=== PATIENT | female | born 1980 | race Two or more races ===

== ENCOUNTER 2020-11-10 22:41 | Inpatient (IN) | payer OTHER ==
[~2020-11-10] VITALS: Ht 152.4 cm; Wt 68.9 kg
[2020-11-10] MEDS ORDERED: cloNIDine HCL 0.1 MG TAB PO ONE (23:00)
[2020-11-10 23:32] LABS: Basophils # (auto) 0.2 10 ^3/uL (0-0.2); Basophils % (auto) 2.2 % (0.0-2.0); Eosinophils # (auto) 0.1 10 ^3/uL (0-0.8); Eosinophils % (auto) 1.3 % (0.0-7.0); Hematocrit 37.4 % (36.0-46.0); Hemoglobin 12.4 g/dL (12.2-16.2); Lymphocytes # (auto) 2.6 10 ^3/uL (0.4-5.4); Mean Corpuscular Hemoglobin 30.3 pg (28.0-32.0); Mean Corpuscular Hgb Conc. 33.2 g/dL (32.0-36.0); Mean Corpuscular Volume 91.2 fL (80.0-100.0); Monocytes # (auto) 0.6 10 ^3/uL (0-1.3); Monocytes % (auto) 5.9 % (0.0-12.0); Neutrophils # (auto) 6.4 10 ^3/uL (1.6-8.6); Neutrophils % (auto) 64.6 % (37.0-80.0); Red Cell Distribution Width 13.6 % (11.8-14.3); White Blood Cell 9.9 10^3/uL (4.4-10.8)
[2020-11-10 23:51] LABS: BUN/Creatinine Ratio 9.5; Calcium 7.9 mg/dL (8.5-10.1); Potassium 3.7 mmol/L (3.5-5.1)
[2020-11-10 23:56] LABS: Bilirubin, Total 0.2 mg/dL (0.2-1.0); Total Protein 7.2 g/dL (6.4-8.2)
[2020-11-11] VITALS (7 sets, daily range): BP systolic 121–160; BP diastolic 72–91
[2020-11-11] MEDS ORDERED: DOCUSATE SOD 100 MG CAP PO PRN (01:45)
[2020-11-11] MEDS ORDERED: MORPHINE SULFATE 4 MG/ML SYR/VIAL IV PRN (01:45)
[2020-11-11] MEDS ORDERED: NITROGLYCERIN 0.4 MG SL TAB SL PRN (01:45)
[2020-11-11] MEDS ORDERED: MORPHINE SULFATE INJECTION 2 MG/ML SYRG IV PRN (01:45)
[2020-11-11] MEDS ORDERED: ONDANSETRON HCL 4 MG/2 ML VIAL IV PRN (01:45)
[2020-11-11] MEDS ORDERED: TEMAZEPAM 15 MG CAP PO PRN (01:45)
[2020-11-11] MEDS ORDERED: hydrALAZINE HCL 20 MG/ML VL IV PRN (01:45)
[2020-11-11] MEDS ORDERED: ACETAMINOPHEN 325 MG TAB PO PRN (01:45)
[2020-11-11 02:57] LABS: Urine Bacteria NONE SEEN /hpf (None Seen); Urine Blood 1+ /uL (Negative); Urine Specific Gravity 1.008 (1.001-1.035); Urine WBC 1 /hpf (0 - 5)
[2020-11-11] MEDS ORDERED: LOSA-69 PO (05:35)
[2020-11-11] MEDS: SODIUM CHLOR 0.9% PF (SALINE LOCK) 10ML VIAL/SYR IV SCH ×3 (06:04→21:24)
[2020-11-11] MEDS: MULTIPLE VITAMIN TAB PO SCH (09:48)
[2020-11-11] MEDS: ASCORBIC ACID 500 MG TAB PO SCH ×2 (09:48→21:23)
[2020-11-11] MEDS: amLODIPine BESYLATE 5 MG TAB PO SCH (09:48)
[2020-11-11] MEDS: ZINC SULFATE 220mg CAP or TAB PO SCH (09:48)
[2020-11-11] MEDS: FAMOTIDINE (10MG/ML) 2ML VL IV SCH ×2 (09:48→21:23)
[2020-11-11] MEDS: HEPARIN SODIUM (PORCINE) 5000 UNITS/ML 1ML VIAL SC SCH ×2 (09:55→21:20)
[2020-11-11 10:54] LABS: Potassium 3.6 mmol/L (3.5-5.1)
[2020-11-11 11:02] LABS: Calcium 7.3 mg/dL (8.5-10.1)
[2020-11-11] MEDS ORDERED: D5W/SOD CHLO 0.9% 1,000 ML IV SCH (11:30)
[2020-11-11 12:58] LABS: Protein, Urine 434.4 mg/dL (0.0-11.9)
[2020-11-11] MEDS: SODIUM BICARBONATE 50ML VIAL 50 ML in SOD CHL 0.45% 1,000 ML IV SCH ×2 (14:33→23:49)
[2020-11-11] MEDS: HYDROcodone-ACET 5/325MG TAB PO PRN ×2 (15:48→21:23)
[2020-11-12 05:00] VITALS: BP 150/95
[2020-11-12 06:00] VITALS: BP 145/80
[2020-11-12 06:02] LABS: Basophils # (auto) 0 10 ^3/uL (0-0.2); Basophils % (auto) 0.3 % (0.0-2.0); Eosinophils # (auto) 0.1 10 ^3/uL (0-0.8); Eosinophils % (auto) 1.2 % (0.0-7.0); Hematocrit 34.6 % (36.0-46.0); Hemoglobin 11.9 g/dL (12.2-16.2); Lymphocytes # (auto) 2.9 10 ^3/uL (0.4-5.4); Lymphocytes % (auto) 35.9 % (10.0-50.0); Mean Corpuscular Hemoglobin 31.1 pg (28.0-32.0); Mean Corpuscular Hgb Conc. 34.4 g/dL (32.0-36.0); Mean Corpuscular Volume 90.5 fL (80.0-100.0); Monocytes # (auto) 0.5 10 ^3/uL (0-1.3); Monocytes % (auto) 5.9 % (0.0-12.0); Neutrophils # (auto) 4.5 10 ^3/uL (1.6-8.6); Neutrophils % (auto) 56.7 % (37.0-80.0); Nucleated Red Blood Cells % 0.1 %; Red Blood Cells 3.82 10^6/uL (4.0-5.20); Red Cell Distribution Width 13.7 % (11.8-14.3); White Blood Cell 7.9 10^3/uL (4.4-10.8)
[2020-11-12 06:06] LABS: RPR Non Reactive (Non Reactive)
[2020-11-12] MEDS: LEVOTHYROXINE SODIUM 25 MCG TAB PO SCH (06:12)
[2020-11-12] MEDS: SODIUM CHLOR 0.9% PF (SALINE LOCK) 10ML VIAL/SYR IV SCH ×3 (06:12→21:29)
[2020-11-12 06:17] LABS: Potassium 3.8 mmol/L (3.5-5.1)
[2020-11-12 06:26] LABS: Albumin 2.4 g/dL (3.4-5.0); BUN/Creatinine Ratio 10.7; Bilirubin, Total 0.2 mg/dL (0.2-1.0); Magnesium 2.5 mg/dL (1.6-2.6); Phosphorus 4.6 mg/dL (2.5-4.90); Total Protein 6.2 g/dL (6.4-8.2)
[2020-11-12 09:00] VITALS: BP 141/85
[2020-11-12] MEDS: SODIUM BICARBONATE 50ML VIAL 50 ML in SOD CHL 0.45% 1,000 ML IV SCH ×2 (09:00→13:57)
[2020-11-12] MEDS: FAMOTIDINE (10MG/ML) 2ML VL IV SCH ×2 (09:16→21:28)
[2020-11-12] MEDS: MULTIPLE VITAMIN TAB PO SCH (09:16)
[2020-11-12] MEDS: ZINC SULFATE 220mg CAP or TAB PO SCH (09:16)
[2020-11-12] MEDS: amLODIPine BESYLATE 5 MG TAB PO SCH (09:17)
[2020-11-12] MEDS: ASCORBIC ACID 500 MG TAB PO SCH ×2 (09:17→21:28)
[2020-11-12] MEDS: HEPARIN SODIUM (PORCINE) 5000 UNITS/ML 1ML VIAL SC SCH ×2 (09:23→21:30)
[2020-11-12 11:44] LABS: INR 0.97 (0.9-1.15); Partial Thromboplastin Time 27.5 sec (23.6-33.0)
[2020-11-12 13:00] VITALS: BP 138/86
[2020-11-12] MEDS ORDERED: hydrALAZINE HCL 20 MG/ML VL IV PRN (13:00)
[2020-11-12 17:00] VITALS: BP 141/85
[2020-11-12 22:00] VITALS: BP 149/91
[2020-11-13] MEDS: SODIUM BICARBONATE 50ML VIAL 50 ML in SOD CHL 0.45% 1,000 ML IV SCH ×2 (01:01→11:50)
[2020-11-13 05:00] VITALS: BP 147/96
[2020-11-13 05:46] LABS: BUN/Creatinine Ratio 9.9; Calcium 7.9 mg/dL (8.5-10.1); Potassium 3.9 mmol/L (3.5-5.1)
[2020-11-13] MEDS: SODIUM CHLOR 0.9% PF (SALINE LOCK) 10ML VIAL/SYR IV SCH ×3 (06:41→21:23)
[2020-11-13] MEDS: LEVOTHYROXINE SODIUM 25 MCG TAB PO SCH (06:41)
[2020-11-13] MEDS: HEPARIN SODIUM (PORCINE) 5000 UNITS/ML 1ML VIAL SC SCH ×2 (08:47→21:24)
[2020-11-13] MEDS: FAMOTIDINE (10MG/ML) 2ML VL IV SCH ×2 (08:49→21:23)
[2020-11-13] MEDS: ZINC SULFATE 220mg CAP or TAB PO SCH (08:49)
[2020-11-13] MEDS: MULTIPLE VITAMIN TAB PO SCH (08:49)
[2020-11-13] MEDS: amLODIPine BESYLATE 5 MG TAB PO SCH (08:50)
[2020-11-13] MEDS: ASCORBIC ACID 500 MG TAB PO SCH ×2 (08:50→21:22)
[2020-11-13 09:13] VITALS: BP 152/88
[2020-11-13] MEDS ORDERED: ALUM & MAG HYDROX-SIMETH LIQ(MAALOX) 30 ML GT PRN (11:45)
[2020-11-13] MEDS ORDERED: ONDANSETRON HCL 4 MG/2 ML VIAL IV PRN (11:45)
[2020-11-13] MEDS: HYDROcodone-ACET 5/325MG TAB PO PRN (11:48)
[2020-11-13 12:48] LABS: Hepatitis B Surface Antigen Negative (Negative)
[2020-11-13 12:49] LABS: Hepatitis C Antibody Negative (Negative)
[2020-11-13 13:00] VITALS: BP 134/83
[2020-11-13 17:00] VITALS: BP 131/79
[2020-11-13 22:00] VITALS: BP 124/79
[2020-11-14] MEDS: SODIUM BICARBONATE 50ML VIAL 50 ML in SOD CHL 0.45% 1,000 ML IV SCH ×2 (00:24→14:05)
[2020-11-14 05:00] VITALS: BP 144/84
[2020-11-14] MEDS: SODIUM CHLOR 0.9% PF (SALINE LOCK) 10ML VIAL/SYR IV SCH ×3 (06:15→23:22)
[2020-11-14] MEDS: LEVOTHYROXINE SODIUM 25 MCG TAB PO SCH (06:16)
[2020-11-14 09:00] VITALS: BP 159/95
[2020-11-14] MEDS: ASCORBIC ACID 500 MG TAB PO SCH ×2 (10:00→23:22)
[2020-11-14] MEDS: ZINC SULFATE 220mg CAP or TAB PO SCH (10:00)
[2020-11-14] MEDS: MULTIPLE VITAMIN TAB PO SCH (10:00)
[2020-11-14] MEDS: HEPARIN SODIUM (PORCINE) 5000 UNITS/ML 1ML VIAL SC SCH ×2 (10:00→23:23)
[2020-11-14] MEDS: FAMOTIDINE (10MG/ML) 2ML VL IV SCH ×2 (11:19→23:21)
[2020-11-14] MEDS: amLODIPine BESYLATE 5 MG TAB PO SCH (11:19)
[2020-11-14] MEDS: HYDROcodone-ACET 5/325MG TAB PO PRN (11:35)
[2020-11-14] MEDS ORDERED: LIDOCAINE 2%HCL (LOCAL ANESTH.) INJ 20ML MDV ONE (12:03)
[2020-11-14] MEDS ORDERED: GELATIN 1 SPONGE SIZE 50 TOP ONE (12:14)
[2020-11-14 13:00] VITALS: BP 149/86
[2020-11-14 16:37] VITALS: BP 127/77
[2020-11-14 22:00] VITALS: BP 142/78
[2020-11-15] MEDS: SODIUM BICARBONATE 50ML VIAL 50 ML in SOD CHL 0.45% 1,000 ML IV SCH ×2 (04:08→10:30)
[2020-11-15 05:00] VITALS: BP 146/89
[2020-11-15 05:55] LABS: Basophils # (auto) 0 10 ^3/uL (0-0.2); Basophils % (auto) 0.4 % (0.0-2.0); Eosinophils # (auto) 0.1 10 ^3/uL (0-0.8); Eosinophils % (auto) 0.8 % (0.0-7.0); Hemoglobin 11.4 g/dL (12.2-16.2); Lymphocytes # (auto) 2.1 10 ^3/uL (0.4-5.4); Lymphocytes % (auto) 31.6 % (10.0-50.0); Mean Corpuscular Hemoglobin 30.8 pg (28.0-32.0); Mean Corpuscular Hgb Conc. 34.4 g/dL (32.0-36.0); Mean Corpuscular Volume 89.6 fL (80.0-100.0); Monocytes # (auto) 0.4 10 ^3/uL (0-1.3); Monocytes % (auto) 5.9 % (0.0-12.0); Neutrophils % (auto) 61.3 % (37.0-80.0); Nucleated Red Blood Cells % 0.1 %; Red Blood Cells 3.68 10^6/uL (4.0-5.20); Red Cell Distribution Width 12.9 % (11.8-14.3); White Blood Cell 6.5 10^3/uL (4.4-10.8)
[2020-11-15] MEDS: SODIUM CHLOR 0.9% PF (SALINE LOCK) 10ML VIAL/SYR IV SCH ×2 (06:01→14:00)
[2020-11-15 06:07] LABS: BUN/Creatinine Ratio 8.1; Calcium 8.1 mg/dL (8.5-10.1); Potassium 3.9 mmol/L (3.5-5.1)
[2020-11-15] MEDS: LEVOTHYROXINE SODIUM 25 MCG TAB PO SCH (06:42)
[2020-11-15 08:13] VITALS: BP 149/89
[2020-11-15] MEDS: ZINC SULFATE 220mg CAP or TAB PO SCH (09:35)
[2020-11-15] MEDS: ASCORBIC ACID 500 MG TAB PO SCH (09:35)
[2020-11-15] MEDS: FAMOTIDINE (10MG/ML) 2ML VL IV SCH (09:35)
[2020-11-15] MEDS: MULTIPLE VITAMIN TAB PO SCH (09:35)
[2020-11-15] MEDS: amLODIPine BESYLATE 5 MG TAB PO SCH (09:36)
[2020-11-15] MEDS: HEPARIN SODIUM (PORCINE) 5000 UNITS/ML 1ML VIAL SC SCH (09:52)
[2020-11-15] MEDS ORDERED: CHOLECALCIFEROL (VITD3) 2,000 UNIT CAP/TAB PO SCH (10:00)
[2020-11-15 13:00] VITALS: BP 121/73
[2020-11-15] MEDS: HYDROcodone-ACET 5/325MG TAB PO PRN (13:46)
[2020-11-15 16:06] VITALS: BP 121/89
== END 2020-11-15 16:52 | disposition home or self-care (01) | DRG 199 ==
LOC: ER 22:41 → TELE 11-11 01:42 → TELE-CENTR 11-11 04:25
PROVIDERS: ADMIT Nurse Practitioner Family; ATTEND Internal Medicine
PROC: 0TB13ZX Excision of Left Kidney, Percutaneous Approach, Diagnostic (ICD-10-PCS; principal; 2020-11-14)
DX: I16.0 Hypertensive urgency (principal); N17.0 Acute kidney failure with tubular necrosis; E87.2 Acidosis; R55 Syncope and collapse; E03.9 Hypothyroidism, unspecified; N18.32 Chronic kidney disease, stage 3b; H35.039 Hypertensive retinopathy, unspecified eye; E55.9 Vitamin D deficiency, unspecified; I12.9 Hypertensive chronic kidney disease with stage 1 through stage 4 chronic kidney disease, or unspecified chronic kidney disease; Z79.899 Other long term (current) drug therapy; Z91.15 Patient's noncompliance with renal dialysis; Z20.822 Contact with and (suspected) exposure to COVID-19; R80.9 Proteinuria, unspecified
CPT/HCPCS: 10022; 36415; 36600; 74150; 76775; 77012; 80048; 80053; 81001; 82306; 82550; 82570; 82805; 83036; 83520; 83735; 83880; 83970; 84100; 84156; 84300; 84439; 84443; 84484; 85025; 85610; 85652; 85730; 86038; 86141; 86160; 86256; 86592; 86803; 87340; 87426; 93306; 99291; G0378; J2405; J3490

== ENCOUNTER 2021-10-13 16:42 | Inpatient (IN) | payer OTHER ==
[~2021-10-13] VITALS: Ht 152.4 cm; Wt 57.7 kg
[~2021-10-13 16:42] MED LIST: LOSA-69 PO
[2021-10-13 17:55] LABS: Basophils # (auto) 0 10 ^3/uL (0-0.2); Basophils % (auto) 0.4 % (0.0-2.0); Eosinophils # (auto) 0.1 10 ^3/uL (0-0.8); Eosinophils % (auto) 0.8 % (0.0-7.0); Hematocrit 26.7 % (36.0-46.0); Hemoglobin 8.7 g/dL (12.2-16.2); Lymphocytes % (auto) 9.6 % (10.0-50.0); Mean Corpuscular Hemoglobin 28.5 pg (28.0-32.0); Mean Corpuscular Hgb Conc. 32.8 g/dL (32.0-36.0); Monocytes # (auto) 0.8 10 ^3/uL (0-1.3); Monocytes % (auto) 7.8 % (0.0-12.0); Neutrophils # (auto) 8.2 10 ^3/uL (1.6-8.6); Neutrophils % (auto) 81.4 % (37.0-80.0); Nucleated Red Blood Cells % 0.1 %; Red Blood Cells 3.07 10^6/uL (4.0-5.20); White Blood Cell 10.1 10^3/uL (4.4-10.8)
[2021-10-13 18:17] LABS: Albumin 2.9 g/dL (3.4-5.0); BUN/Creatinine Ratio 8.3; Calcium 8.1 mg/dL (8.5-10.1); Potassium 4.2 mmol/L (3.5-5.1)
[2021-10-13 18:19] LABS: Bilirubin, Total 0.3 mg/dL (0.2-1.0); Total Protein 7.3 g/dL (6.4-8.2)
[2021-10-14] MEDS ORDERED: MORPHINE SULFATE INJ 2 MG/ml SYRG IV PRN (03:15)
[2021-10-14] MEDS ORDERED: cloNIDine HCL 0.1 MG TAB PO PRN (03:15)
[2021-10-14] MEDS ORDERED: NITROGLYCERIN 0.4 MG SL TAB SL PRN (03:15)
[2021-10-14] MEDS: ONDANSETRON HCL 4 MG/2 ML VIAL IV PRN (03:19)
[2021-10-14] MEDS ORDERED: ENOXAPARIN SOD 60 MG/0.6 ML SYRINGE SC ONE (03:30)
[2021-10-14 04:03] LABS: Cholesterol 170 mg/dL (< 200); HDL Cholesterol 48 mg/dL (40-59); LDL Cholesterol 99 mg/dL (< 100); Triglycerides 164 mg/dL (< 150)
[2021-10-14] MEDS ORDERED: D5W/SOD CHLO 0.9% 1,000 ML IV SCH (06:30)
[2021-10-14] MEDS ORDERED: SODIUM CHLORIDE 0.9% 1,000 ML IV SCH (08:30)
[2021-10-14 09:00] VITALS: BP 145/87
[2021-10-14 09:19] VITALS: BP 145/87
[2021-10-14 09:54] LABS: BUN/Creatinine Ratio 7.9; Calcium 8.1 mg/dL (8.5-10.1); Potassium 3.6 mmol/L (3.5-5.1)
[2021-10-14 10:00] LABS: % Iron Saturation 12.4 % (15-50)
[2021-10-14] MEDS ORDERED: ASPirin 81 mg TAB PO SCH (10:00)
[2021-10-14] MEDS: amLODIPine BESYLATE 5 MG TAB PO SCH (10:13)
[2021-10-14] MEDS: PANTOPRAZOLE 40 MG TAB PO SCH (10:14)
[2021-10-14] MEDS ORDERED: SODIUM BICARBONATE 50ML VIAL 150 ML in D5W 5% 1,000 ML IV SCH ×2 (12:15→18:00)
[2021-10-14] MEDS ORDERED: AML5T PO (12:48)
[2021-10-14] MEDS ORDERED: LEV50T PO (12:48)
[2021-10-14 13:00] VITALS: BP 133/89
[2021-10-14] MEDS: SODIUM FERR GLUC 62.5MG/5ML 125 MG in SODIUM CHL 0.9% 100 ML IV SCH (16:51)
[2021-10-14 17:12] VITALS: BP 118/77
[2021-10-14] MEDS: SEVELAMER 800 MG TAB PO SCH (18:21)
[2021-10-14 18:34] LABS: INR 0.97 (0.9-1.15); Partial Thromboplastin Time 49.7 sec (24.6-33.4)
[2021-10-14 22:00] VITALS: BP 112/76
[2021-10-14] MEDS: ATORVASTATIN 20 MG TAB PO SCH (22:40)
[2021-10-15] VITALS (9 sets, daily range): BP systolic 122–145; BP diastolic 75–91
[2021-10-15] MEDS: ACETAMINOPHEN 325 MG TAB PO PRN ×2 (01:55→21:39)
[2021-10-15 05:50] LABS: Albumin 2.3 g/dL (3.4-5.0); Calcium 7.1 mg/dL (8.5-10.1); Magnesium 2.3 mg/dL (1.6-2.6); Potassium 3.5 mmol/L (3.5-5.1)
[2021-10-15 05:51] LABS: Basophils # (auto) 0 10 ^3/uL (0-0.2); Eosinophils # (auto) 0.2 10 ^3/uL (0-0.8); Hemoglobin 7.6 g/dL (12.2-16.2); Lymphocytes # (auto) 1.6 10 ^3/uL (0.4-5.4); Monocytes # (auto) 0.6 10 ^3/uL (0-1.3); Monocytes % (auto) 12.1 % (0.0-12.0); Neutrophils # (auto) 2.8 10 ^3/uL (1.6-8.6)
[2021-10-15 05:53] LABS: BUN/Creatinine Ratio 7.9; Bilirubin, Total 0.3 mg/dL (0.2-1.0); Total Protein 6.4 g/dL (6.4-8.2)
[2021-10-15 05:55] LABS: Basophils % (auto) 0.4 % (0.0-2.0); Lymphocytes % (auto) 31.1 % (10.0-50.0); Mean Corpuscular Hemoglobin 29.4 pg (28.0-32.0); Mean Corpuscular Hgb Conc. 34.6 g/dL (32.0-36.0); Mean Corpuscular Volume 85.1 fL (80.0-100.0); Neutrophils % (auto) 53.4 % (37.0-80.0); Nucleated Red Blood Cells % 0.1 %; Red Blood Cells 2.58 10^6/uL (4.0-5.20); Red Cell Distribution Width 14.6 % (11.8-14.3); White Blood Cell 5.2 10^3/uL (4.4-10.8)
[2021-10-15] MEDS: LEVOTHYROXINE SODIUM 100 MCG TAB PO SCH (07:43)
[2021-10-15] MEDS: SEVELAMER 800 MG TAB PO SCH ×3 (08:00→19:47)
[2021-10-15 10:16] LABS: Urine Bacteria FEW /hpf (None Seen); Urine Blood TRACE /uL (Negative); Urine Specific Gravity 1.009 (1.001-1.035); Urine WBC 2 /hpf (0 - 5)
[2021-10-15 10:26] LABS: Protein, Urine 184.9 mg/dL (0.0-11.9)
[2021-10-15] MEDS ORDERED: IODIXANOL 320MG/ML 100ML BTL IV ONE ×2 (11:32→11:36)
[2021-10-15] MEDS ORDERED: LIDOCAINE 2%HCL (LOCAL ANESTH.) INJ 10ml MDV ONE (11:33)
[2021-10-15] MEDS ORDERED: fentaNYL CITRATE 100 MCG/2 ML VL ONE (11:38)
[2021-10-15] MEDS ORDERED: MIDAZOLAM HCL 2MG/2ML 2ml VIAL (1mg/ml) ONE (11:38)
[2021-10-15] MEDS ORDERED: HEPARIN SODIUM (PORCINE) 5000 UNITS/ML 1ML VIAL ONE (11:39)
[2021-10-15] MEDS ORDERED: ceFAZolin 1GM VL ONE (11:52)
[2021-10-15] MEDS ORDERED: CHOLECALCIFEROL (VITD3) 2,000 UNIT CAP/TAB PO ONE (12:15)
[2021-10-15] MEDS ORDERED: SODIUM CHL 0.9% 1000 ML BAG XX ONE (12:15)
[2021-10-15] MEDS: ONDANSETRON HCL 4 MG/2 ML VIAL IV PRN (13:55)
[2021-10-15] MEDS ORDERED: LOPERAMIDE HCL 2 MG CAP/TAB PO PRN (14:00)
[2021-10-15] MEDS ORDERED: LOPERAMIDE HCL 2 MG CAP/TAB PO ONE (14:00)
[2021-10-15] MEDS: ASPirin 81 mg TAB PO SCH (14:29)
[2021-10-15] MEDS: amLODIPine BESYLATE 5 MG TAB PO SCH (14:31)
[2021-10-15] MEDS: PANTOPRAZOLE 40 MG TAB PO SCH (14:48)
[2021-10-15] MEDS ORDERED: LEVO75TA6 PO (16:24)
[2021-10-15] MEDS ORDERED: AMLO-496 PO (16:24)
[2021-10-15] MEDS: SODIUM FERR GLUC 62.5MG/5ML 125 MG in SODIUM CHL 0.9% 100 ML IV SCH (17:27)
[2021-10-15] MEDS: ATORVASTATIN 20 MG TAB PO SCH (21:39)
[2021-10-15 23:03] LABS: INR 0.97 (0.9-1.15)
[2021-10-16 05:00] VITALS: BP 119/73
[2021-10-16] MEDS: LEVOTHYROXINE SODIUM 100 MCG TAB PO SCH (06:20)
[2021-10-16 06:49] LABS: Hemoglobin 7.7 g/dL (12.2-16.2)
[2021-10-16 06:51] LABS: Hematocrit 23.1 % (36.0-46.0)
[2021-10-16 07:11] LABS: BUN/Creatinine Ratio 6.4; Potassium 3.8 mmol/L (3.5-5.1)
[2021-10-16] MEDS: SEVELAMER 800 MG TAB PO SCH ×3 (08:29→18:12)
[2021-10-16 08:48] VITALS: BP 128/78
[2021-10-16] MEDS: CHOLECALCIFEROL (VITD3) 2,000 UNIT CAP/TAB PO SCH (09:54)
[2021-10-16] MEDS: ASPirin 81 mg TAB PO SCH (09:55)
[2021-10-16] MEDS: PANTOPRAZOLE 40 MG TAB PO SCH (09:55)
[2021-10-16] MEDS: amLODIPine BESYLATE 5 MG TAB PO SCH (09:56)
[2021-10-16 13:00] VITALS: BP 116/74
[2021-10-16] MEDS: SODIUM FERR GLUC 62.5MG/5ML 125 MG in SODIUM CHL 0.9% 100 ML IV SCH ×2 (13:49→15:47)
[2021-10-16 17:09] VITALS: BP 117/75
[2021-10-16 22:00] VITALS: BP 127/81
[2021-10-16] MEDS: ATORVASTATIN 20 MG TAB PO SCH (22:02)
[2021-10-17 05:00] VITALS: BP 134/82
[2021-10-17] MEDS: LEVOTHYROXINE SODIUM 100 MCG TAB PO SCH (06:12)
[2021-10-17 06:51] LABS: Hemoglobin 7.2 g/dL (12.2-16.2)
[2021-10-17 06:53] LABS: Hematocrit 21.1 % (36.0-46.0)
[2021-10-17] MEDS ORDERED: SODIUM CHL 0.9% 1000 ML BAG XX ONE (07:00)
[2021-10-17 07:04] LABS: Magnesium 1.9 mg/dL (1.6-2.6); Potassium 3.8 mmol/L (3.5-5.1)
[2021-10-17] MEDS: SEVELAMER 800 MG TAB PO SCH ×3 (08:00→17:49)
[2021-10-17 08:57] VITALS: BP 138/84
[2021-10-17] MEDS: amLODIPine BESYLATE 5 MG TAB PO SCH (11:03)
[2021-10-17] MEDS: ASPirin 81 mg TAB PO SCH (11:03)
[2021-10-17] MEDS: PANTOPRAZOLE 40 MG TAB PO SCH (11:04)
[2021-10-17] MEDS: CHOLECALCIFEROL (VITD3) 2,000 UNIT CAP/TAB PO SCH (11:04)
[2021-10-17] MEDS: SODIUM FERR GLUC 62.5MG/5ML 125 MG in SODIUM CHL 0.9% 100 ML IV SCH (12:13)
[2021-10-17] MEDS ORDERED: SENNA 8.6 MG TAB PO PRN (15:00)
[2021-10-17 16:57] VITALS: BP 124/81
[2021-10-17] MEDS ORDERED: EPOETIN ALFA-EPBX 10,000 UNIT/1ML VIAL SC ONE (21:00)
[2021-10-17] MEDS: ATORVASTATIN 20 MG TAB PO SCH (21:35)
[2021-10-17 22:00] VITALS: BP 130/94
[2021-10-18 05:00] VITALS: BP 145/92
[2021-10-18] MEDS: LEVOTHYROXINE SODIUM 100 MCG TAB PO SCH (05:06)
[2021-10-18] MEDS: SEVELAMER 800 MG TAB PO SCH ×3 (08:00→18:00)
[2021-10-18 09:00] VITALS: BP 145/91
[2021-10-18] MEDS: ASPirin 81 mg TAB PO SCH (10:11)
[2021-10-18] MEDS: amLODIPine BESYLATE 5 MG TAB PO SCH (10:17)
[2021-10-18] MEDS: CHOLECALCIFEROL (VITD3) 2,000 UNIT CAP/TAB PO SCH (10:17)
[2021-10-18] MEDS: PANTOPRAZOLE 40 MG TAB PO SCH (10:17)
[2021-10-18] MEDS: SODIUM FERR GLUC 62.5MG/5ML 125 MG in SODIUM CHL 0.9% 100 ML IV SCH (12:38)
[2021-10-18 17:00] VITALS: BP 112/79
[2021-10-18] MEDS: ACETAMINOPHEN 325 MG TAB PO PRN (20:00)
[2021-10-18] MEDS: ATORVASTATIN 20 MG TAB PO SCH (21:31)
[2021-10-18 22:00] VITALS: BP 131/86
[2021-10-19 05:00] VITALS: BP 125/91
[2021-10-19] MEDS: LEVOTHYROXINE SODIUM 100 MCG TAB PO SCH (06:37)
[2021-10-19 09:00] VITALS: BP 133/88
[2021-10-19 09:43] LABS: Hepatitis B Surface Antibody Negative (Negative)
[2021-10-19] MEDS: PANTOPRAZOLE 40 MG TAB PO SCH (09:54)
[2021-10-19] MEDS: CHOLECALCIFEROL (VITD3) 2,000 UNIT CAP/TAB PO SCH (09:54)
[2021-10-19] MEDS: ASPirin 81 mg TAB PO SCH (09:54)
[2021-10-19] MEDS: SEVELAMER 800 MG TAB PO SCH ×3 (09:54→17:51)
[2021-10-19] MEDS: ACETAMINOPHEN 325 MG TAB PO PRN (09:55)
[2021-10-19] MEDS: amLODIPine BESYLATE 5 MG TAB PO SCH (09:55)
[2021-10-19 10:13] LABS: Hepatitis A Total Antibody Positive (Negative)
[2021-10-19 11:55] LABS: Hepatitis C Antibody Negative (Negative)
[2021-10-19 13:00] VITALS: BP 127/86
[2021-10-19 17:00] VITALS: BP 124/83
[2021-10-19] MEDS: ATORVASTATIN 20 MG TAB PO SCH (21:49)
[2021-10-19 22:00] VITALS: BP 126/86
[2021-10-20 05:00] VITALS: BP 137/84
[2021-10-20] MEDS: LEVOTHYROXINE SODIUM 100 MCG TAB PO SCH (06:14)
[2021-10-20] MEDS ORDERED: SODIUM CHL 0.9% 1000 ML BAG XX ONE (07:00)
[2021-10-20 07:31] LABS: Basophils # (auto) 0.1 10 ^3/uL (0-0.2)
[2021-10-20 07:33] LABS: Eosinophils # (auto) 0.3 10 ^3/uL (0-0.8); Eosinophils % (auto) 2.2 % (0.0-7.0); Hematocrit 24.1 % (36.0-46.0); Lymphocytes # (auto) 1.7 10 ^3/uL (0.4-5.4); Lymphocytes % (auto) 14.2 % (10.0-50.0); Mean Corpuscular Hemoglobin 29.3 pg (28.0-32.0); Mean Corpuscular Hgb Conc. 33.1 g/dL (32.0-36.0); Mean Corpuscular Volume 88.4 fL (80.0-100.0); Monocytes # (auto) 0.8 10 ^3/uL (0-1.3); Monocytes % (auto) 7.2 % (0.0-12.0); Neutrophils # (auto) 8.8 10 ^3/uL (1.6-8.6); Neutrophils % (auto) 75.4 % (37.0-80.0); Red Blood Cells 2.73 10^6/uL (4.0-5.20); Red Cell Distribution Width 14.5 % (11.8-14.3); White Blood Cell 11.7 10^3/uL (4.4-10.8)
[2021-10-20] MEDS: SEVELAMER 800 MG TAB PO SCH (07:46)
[2021-10-20 07:52] LABS: Albumin 2.5 g/dL (3.4-5.0); Calcium 8.2 mg/dL (8.5-10.1); Potassium 5.1 mmol/L (3.5-5.1)
[2021-10-20 07:55] LABS: BUN/Creatinine Ratio 7.6; Bilirubin, Total 0.2 mg/dL (0.2-1.0); Total Protein 6.5 g/dL (6.4-8.2)
[2021-10-20 09:00] VITALS: BP 134/85
[2021-10-20] MEDS: ASPirin 81 mg TAB PO SCH (09:39)
[2021-10-20] MEDS: amLODIPine BESYLATE 5 MG TAB PO SCH (09:40)
[2021-10-20] MEDS: CHOLECALCIFEROL (VITD3) 2,000 UNIT CAP/TAB PO SCH (09:40)
[2021-10-20] MEDS: PANTOPRAZOLE 40 MG TAB PO SCH (09:40)
[2021-10-20] MEDS ORDERED: B-COMPLEX W/ C & FOLIC ACID(NEPHROVITE TAB) PO SCH (10:00)
[2021-10-20] MEDS ORDERED: CHOL1CAP47 PO (10:38)
[2021-10-20] MEDS ORDERED: AML5T PO (10:38)
[2021-10-20] MEDS ORDERED: LEV100T PO (10:38)
[2021-10-20] MEDS ORDERED: PANT40T PO (10:38)
[2021-10-20] MEDS ORDERED: SEVE800T PO (10:38)
[2021-10-20] MEDS ORDERED: B-CO1TAB33 PO (10:38)
[2021-10-20] MEDS ORDERED: CEPH-509 PO (10:38)
[2021-10-20 10:51] VITALS: BP 134/85
[2021-10-20] MEDS ORDERED: EPOETIN ALFA-EPBX 10,000 UNIT/1ML VIAL SC ONE (21:00)
== END 2021-10-20 11:30 | disposition home or self-care (01) | DRG 469 ==
LOC: ER 16:42 → TELE 10-14 03:04 → TELE-WESTW 10-14 08:56 → WEST WING 10-19 22:00
PROVIDERS: ADMIT Nurse Practitioner; ATTEND Internal Medicine
PROC: 0JH63XZ Insertion of Tunneled Vascular Access Device into Chest Subcutaneous Tissue and Fascia, Percutaneous Approach (ICD-10-PCS; principal; 2021-10-15)
PROC: 02H633Z Insertion of Infusion Device into Right Atrium, Percutaneous Approach (ICD-10-PCS; 2021-10-15)
PROC: B5181ZA Fluoroscopy of Superior Vena Cava using Low Osmolar Contrast, Guidance (ICD-10-PCS; 2021-10-15)
PROC: B548ZZA Ultrasonography of Superior Vena Cava, Guidance (ICD-10-PCS; 2021-10-15)
PROC: 5A1D70Z Performance of Urinary Filtration, Intermittent, Less than 6 Hours Per Day (ICD-10-PCS; 2021-10-15)
PROC: 5A1D70Z Performance of Urinary Filtration, Intermittent, Less than 6 Hours Per Day (ICD-10-PCS; 2021-10-17)
DX: N17.9 Acute kidney failure, unspecified (principal); E87.2 Acidosis; I12.0 Hypertensive chronic kidney disease with stage 5 chronic kidney disease or end stage renal disease; D63.1 Anemia in chronic kidney disease; I80.8 Phlebitis and thrombophlebitis of other sites; N18.6 End stage renal disease; I16.1 Hypertensive emergency; E03.9 Hypothyroidism, unspecified; E11.22 Type 2 diabetes mellitus with diabetic chronic kidney disease; E55.9 Vitamin D deficiency, unspecified; E78.5 Hyperlipidemia, unspecified; M54.9 Dorsalgia, unspecified; Z20.822 Contact with and (suspected) exposure to COVID-19; Z98.51 Tubal ligation status; Z79.899 Other long term (current) drug therapy; Z99.2 Dependence on renal dialysis
CPT/HCPCS: 36415; 36558; 71046; 74176; 76942; 77001; 78582; 80048; 80053; 80061; 81001; 82306; 82570; 82728; 83540; 83550; 83605; 83735; 83880; 84100; 84132; 84156; 84436; 84443; 84481; 84484; 85014; 85018; 85025; 85379; 85610; 85730; 86704; 86706; 86708; 86803; 87045; 87081; 87340; 87427; 87493; 90935; 93005; 93306; 93971; 96372; 96374; 99152; 99291; G0378; J0690; J1642; J2001; J2250; J2405; Q9967